=== PATIENT | female | born 2000 | race Caucasian/White ===

== ENCOUNTER 2021-10-27 10:43 | Outpatient (CLI) | payer BC, SELFPAY ==
[2021-10-27 22:21] LABS: Thyroid Stimulating Hormone* 0.743 uIU/mL (0.270-4.20)
[2021-10-27 22:41] LABS: Vitamin B12* 303 pg/mL (243-894)
== END 2021-10-27 10:44 | disposition home or self-care (01) ==
PROVIDERS: PCP Physician Assistant Medical; Visit Provider Family Medicine
DX: H53.8 Other visual disturbances (principal); R20.2 Paresthesia of skin; R53.83 Other fatigue; E16.2 Hypoglycemia, unspecified
CPT/HCPCS: 82607; 84443

== ENCOUNTER 2024-04-26 14:00 | Outpatient (CLI) | payer BC, SELFPAY | END 2024-04-26 14:01 | disposition home or self-care (01) | PROVIDERS: PCP Physician Assistant Medical; Visit Provider Physician Assistant Medical | DX: R53.83 Other fatigue (principal); E16.2 Hypoglycemia, unspecified; Z13.6 Encounter for screening for cardiovascular disorders; Z13.1 Encounter for screening for diabetes mellitus; Z11.3 Encounter for screening for infections with a predominantly sexual mode of transmission; Z11.59 Encounter for screening for other viral diseases | CPT/HCPCS: 80061; 84443; 86592; 86703; 86803 ==

== ENCOUNTER 2024-05-17 15:10 | Outpatient (CLI) | payer BC, SELFPAY ==
[2024-05-17 23:09] LABS: Chlamydia DNA Amplified* NOT DETECTED (No Detected); GC DNA Amplified* NOT DETECTED (No Detected)
[2024-05-19 12:50] LABS: HPV Source Cervix; HPV, High Risk by TMA Not Detected
== END 2024-05-17 15:11 | disposition home or self-care (01) ==
PROVIDERS: PCP Physician Assistant Medical; Visit Provider Physician Assistant Medical
DX: Z11.3 Encounter for screening for infections with a predominantly sexual mode of transmission (principal); Z11.51 Encounter for screening for human papillomavirus (HPV); Z12.4 Encounter for screening for malignant neoplasm of cervix
CPT/HCPCS: 87491; 87591; 87624; 87625; 88141; 88142